=== PATIENT | male | born 1965 | race Caucasian/White ===

== ENCOUNTER 2020-12-15 15:09 | Emergency (ER) | payer MEDICARE, OTHER ==
[~2020-12-15 15:09] MED LIST: AMLODIPINE-BEN1 EAC4 PO; ASPIRIN CHEWABL81 MG PO; CLONAZEPAM0.5 MG PO; OMEPRAZOLE40 MG PO; QUETIAPINE FUM200 MG PO; SERTRALINE HCL100 MG PO; TRAZODONE HCL150 MG PO; VOLTAREN **OUT75 MG PO
[2020-12-15 16:33] LABS: BASOPHIL 0.9 % (0-2); EOSINOPHIL 3.2 % (0-5); HCT 39.1 % (42.0-52.0); LYMPHOCYTE 24.1 % (15-48); MCH 33.3 pg (25.0-31.0); MCHC 33.2 g/dL (32.0-36.0); MCV 100.3 fL (78.0-100.0); MONOCYTE 13.9 % (0-12); MPV 9.2 fL (6.0-9.5); NEUTROPHIL 57.5 % (41-80); NRBC 0; PLT 138 K/uL (150-400); RDW 14.2 % (11.5-14.0); WBC 8.2 K/uL (4.0-10.5)
[2020-12-15 16:53] LABS: BUN/CREAT RATIO (CALC) 18.6 RATIO; CREATININE 2.21 mg/dL (0.67-1.17); POTASSIUM 4.2 mmol/L (3.5-5.1)
[2020-12-15] MEDS ORDERED: CYCLOBENZAPRINE10 MG PO (18:44)
[2020-12-15] MEDS ORDERED: PREDNISONE 20MG20 MG PO (18:44)
[2020-12-15] MEDS ORDERED: NORCO 5-325 TA1 EACH PO (18:46)
[2021-01-05] MEDS ORDERED: KEPPRA250 MG PO (14:07)
[2021-01-05] MEDS ORDERED: TOPROL XL 25MG25 MG PO (14:09)
[2021-01-05] MEDS ORDERED: CYMBALTA 30MG C30 MG PO (14:10)
[2021-01-05] MEDS ORDERED: ALLOPURINOL100 MG PO (14:10)
[2021-01-05] MEDS ORDERED: FOLIC ACID1 MG PO (14:11)
[2021-01-05] MEDS ORDERED: BENAZEPRIL HCL20 MG PO ×2 (14:11)
[2021-01-05] MEDS ORDERED: LASIX20 MG PO (14:13)
[2021-01-12] MEDS ORDERED: AUGMENTIN 875-1 EACH PO (08:37)
[2021-01-12] MEDS ORDERED: PROTONIX 40MG T40 MG PO (08:37)
[2021-01-12] MEDS ORDERED: CARAFATE1 GM PO (08:37)
[2021-01-16] MEDS ORDERED: PERCOCET 5-3251 EACH PO (11:52)
== END 2020-12-15 19:20 | disposition home or self-care (01) ==
LOC: FER 15:09
PROVIDERS: Nurse Practitioner Family
DX: S39.012A Strain of muscle, fascia and tendon of lower back, initial encounter (principal); R51.9 Headache, unspecified; I12.9 Hypertensive chronic kidney disease with stage 1 through stage 4 chronic kidney disease, or unspecified chronic kidney disease; N18.9 Chronic kidney disease, unspecified; Z91.013 Allergy to seafood; W19.XXXA Unspecified fall, initial encounter
CPT/HCPCS: 36415; 70450; 72100; 73560; 73564; 80048; 85025; 96372; J1100; J1885

== ENCOUNTER → 2021-01-12 | Day surgery (SDC) | payer MEDICARE, OTHER ==
[~2021-01-12] VITALS: Ht 198.1 cm; Wt 150.6 kg
[~2021-01-12] MED LIST changes: +ALLOPURINOL100 MG PO; +AMLODIPINE BESY10 MG PO; +ASPIRIN81 MG PO; +AUGMENTIN 875-1 EACH PO; +BENAZEPRIL HCL20 MG PO; +CARAFATE1 GM PO; +COLACE100 MG PO; +CYCLOBENZAPRINE10 MG PO; +CYMBALTA 30MG C30 MG PO; +EMBREL IJ; +FOLIC ACID1 MG PO; +KEPPRA250 MG PO; +LASIX20 MG PO; +MIRALAX17 GM PO; +NITROQUIK SL0.4 MG SL; +NORCO 5-325 TA1 EACH PO; +ONDANSETRON HCL4 MG PO; +PERCOCET 5-3251 EACH PO; +PREDNISONE 20MG20 MG PO; +PROTONIX 40MG T40 MG PO; +TOPROL XL 25MG25 MG PO
== END | disposition home or self-care (01) ==
LOC: FAS 06:38
DX: K29.50 Unspecified chronic gastritis without bleeding (principal); K20.90 Esophagitis, unspecified without bleeding; K74.60 Unspecified cirrhosis of liver; K76.0 Fatty (change of) liver, not elsewhere classified; K31.7 Polyp of stomach and duodenum; K57.30 Diverticulosis of large intestine without perforation or abscess without bleeding; K57.32 Diverticulitis of large intestine without perforation or abscess without bleeding; I12.9 Hypertensive chronic kidney disease with stage 1 through stage 4 chronic kidney disease, or unspecified chronic kidney disease; D64.9 Anemia, unspecified; N18.9 Chronic kidney disease, unspecified; E78.5 Hyperlipidemia, unspecified; G47.33 Obstructive sleep apnea (adult) (pediatric); R73.03 Prediabetes; I83.93 Asymptomatic varicose veins of bilateral lower extremities; Z87.19 Personal history of other diseases of the digestive system; Z90.3 Acquired absence of stomach [part of]; Z98.84 Bariatric surgery status; Z91.013 Allergy to seafood; Z90.49 Acquired absence of other specified parts of digestive tract; Z98.890 Other specified postprocedural states; Z80.9 Family history of malignant neoplasm, unspecified; Z20.822 Contact with and (suspected) exposure to COVID-19; Z93.1 Gastrostomy status
CPT/HCPCS: J2250; J2704; J7120

== ENCOUNTER 2021-01-14 03:15 | Emergency (ER) | payer MEDICARE, OTHER ==
[~2021-01-14 03:15] MED LIST changes: -AMLODIPINE BESY10 MG PO; -ASPIRIN81 MG PO; -COLACE100 MG PO; -EMBREL IJ; -MIRALAX17 GM PO; -NITROQUIK SL0.4 MG SL; -ONDANSETRON HCL4 MG PO; -PERCOCET 5-3251 EACH PO
[2021-01-14] MEDS ORDERED: PERCOCET 5-3251 EACH PO (05:17)
[2021-01-16] MEDS ORDERED: PERCOCET 5-3251 EACH PO (11:52)
== END 2021-01-14 06:20 | disposition home or self-care (01) ==
LOC: FER 03:15
DX: S82.61XA Displaced fracture of lateral malleolus of right fibula, initial encounter for closed fracture (principal); I12.9 Hypertensive chronic kidney disease with stage 1 through stage 4 chronic kidney disease, or unspecified chronic kidney disease; E11.22 Type 2 diabetes mellitus with diabetic chronic kidney disease; N18.30 Chronic kidney disease, stage 3 unspecified; E11.40 Type 2 diabetes mellitus with diabetic neuropathy, unspecified; Z91.013 Allergy to seafood; Z88.8 Allergy status to other drugs, medicaments and biological substances; W19.XXXA Unspecified fall, initial encounter; Y92.009 Unspecified place in unspecified non-institutional (private) residence as the place of occurrence of the external cause; Z20.822 Contact with and (suspected) exposure to COVID-19
CPT/HCPCS: 73590; 73600; 73610; 73630; 96374; 96375; J1170; J2270; J2405; J7120; U0002

== ENCOUNTER 2021-01-18 06:00 | Day surgery (SDCO) | payer MEDICARE, OTHER ==
--- NOTE | 2021-01-16 12:16 | NUR ---
1212 PATIENT WAS BEING ADMITTED HE INFORMED RN THAT HE HAD HAM AT 6 AM THIS MORNING. ANESTHESIA WAS NOTIFIED. DR. OROPEZA WAS ALSO NOTIFIED. CASE TO BE RESHEDULED TO FRIDAY. BROTHER WAS NOTIFIED TO COME GET PATIENT.
[~2021-01-18] VITALS: Ht 198.1 cm; Wt 150.6 kg
[~2021-01-18 06:00] MED LIST changes: +PERCOCET 5-3251 EACH PO
[2021-01-18] MEDS ORDERED: EMBREL IJ (06:53)
[2021-01-18] MEDS ORDERED: AMLODIPINE BESY10 MG PO (13:24)
[2021-01-18] MEDS ORDERED: NITROQUIK SL0.4 MG SL (13:25)
[2021-01-18] MEDS ORDERED: ONDANSETRON HCL4 MG PO (13:27)
--- NOTE | 2021-01-19 09:53 | NUR ---
PT LIVES WITH 15 YEAR OLD SON; PT/OT DID SEE PT AND RECCOMMEND INPT SKILLED PT IS AN OBSERVATION [employer]MARK OF [facility] IS LOOKING INTO PT AND IS PENDING AN AUTH FOR HIM.
--- NOTE | 2021-01-19 11:41 | NUR ---
MR. CAMPBELL CHOSE [facility] FIRST AND THEN [facility]. SENT REFERRAL TO [facility] THEY HAVE SUBMITTED TO [facility] FOR AUTH.
--- NOTE | 2021-01-19 14:53 | NUR ---
SPOKE WITH PATIENTS BROTHER, [facility] CAMPBELL, PLEASE CALL [facility] FOR TRANSPORTATION TO THE [facility] ONCE PT. IS APPROVED BY INSURANCE. [facility] WILL NEED AT LEAST A 1 1/2 HOUR NOTICE TO TRANSPORT. [facility]S NUMBER IS [phone].
[2021-01-21 06:13] LABS: BASOPHIL 0.9 % (0-2); EOSINOPHIL 2.6 % (0-5); HCT 33.5 % (42.0-52.0); HGB 10.5 g/dl (13.2-18.0); LYMPHOCYTE 36.8 % (15-48); MCH 32.8 pg (25.0-31.0); MCHC 31.3 g/dL (32.0-36.0); MCV 104.7 fL (78.0-100.0); MONOCYTE 17.3 % (0-12); MPV 9.2 fL (6.0-9.5); NEUTROPHIL 42.2 % (41-80); NRBC 0; PLT 156 K/uL (150-400); RDW 14.1 % (11.5-14.0); WBC 4.3 K/uL (4.0-10.5)
[2021-01-21 06:37] LABS: ALBUMIN 2.8 g/dL (3.4-5.0); BILIRUBIN - TOTAL 0.5 mg/dL (0.2-1.0); BUN/CREAT RATIO (CALC) 19.6 RATIO; CREATININE 1.38 mg/dL (0.67-1.17); GLOBULIN (CALCULATION) 3.9 g/dL; PHOSPHORUS 3.9 mg/dL (2.6-4.7); POTASSIUM 4.5 mmol/L (3.5-5.1); TOTAL PROTEIN 6.7 g/dL (6.4-8.2)
--- NOTE | 2021-01-21 11:11 | NUR ---
01/21/21 Destiny Keyes reports that [facility] will accept patient today. Mr. Jeong will be required to relinguish his SS check minus $40.00. Mr. Jeong discussed his options of home w HH vs. SNF and decided to go to [facility]. He voiced understanding re: financials. Report given to MS SHRUTI Anne.
[2021-01-21] MEDS ORDERED: COLACE100 MG PO (14:45)
[2021-01-21] MEDS ORDERED: MIRALAX17 GM PO (14:45)
[2021-01-21] MEDS ORDERED: ASPIRIN81 MG PO (14:45)
[2021-01-21] MEDS ORDERED: CLONAZEPAM0.5 MG PO (14:45)
[2021-01-21] MEDS ORDERED: PERCOCET 5-3251 EACH PO (14:45)
== END 2021-01-21 16:54 ==
LOC: FAS 06:00 → FMS 15:28
PROVIDERS: Internal Medicine; ADMIT Hospitalist
DX: S82.841A Displaced bimalleolar fracture of right lower leg, initial encounter for closed fracture (principal); I12.9 Hypertensive chronic kidney disease with stage 1 through stage 4 chronic kidney disease, or unspecified chronic kidney disease; N18.30 Chronic kidney disease, stage 3 unspecified; E11.9 Type 2 diabetes mellitus without complications; M10.9 Gout, unspecified; G47.30 Sleep apnea, unspecified; F32.9 Major depressive disorder, single episode, unspecified; Z98.84 Bariatric surgery status; Z98.890 Other specified postprocedural states; Z90.49 Acquired absence of other specified parts of digestive tract; Z91.013 Allergy to seafood; Z20.822 Contact with and (suspected) exposure to COVID-19; Z87.19 Personal history of other diseases of the digestive system; W18.2XXA Fall in (into) shower or empty bathtub, initial encounter; Z86.2 Personal history of diseases of the blood and blood-forming organs and certain disorders involving the immune mechanism; Z79.899 Other long term (current) drug therapy; Z80.0 Family history of malignant neoplasm of digestive organs; Z82.49 Family history of ischemic heart disease and other diseases of the circulatory system; Z86.69 Personal history of other diseases of the nervous system and sense organs; M19.90 Unspecified osteoarthritis, unspecified site; Z99.81 Dependence on supplemental oxygen
CPT/HCPCS: 36415; 71045; 73600; 76000; 80053; 83605; 83735; 84100; 85025; 93005; 97116; 97162; 97530-GP; C1713; G0378; J0690; J0735; J1100; J1644; J1885; J2250; J2370; J2405; J2704; J2795; J3010; J7120

== ENCOUNTER 2021-09-02 23:10 | Inpatient (IN) | payer MEDICARE, OTHER ==
[~2021-09-02] VITALS: Ht 195.6 cm; Wt 132.9 kg
[~2021-09-02 23:10] MED LIST changes: +AMLODIPINE BESY10 MG PO; +ASPIRIN81 MG PO; +COLACE100 MG PO; +EMBREL IJ; +MIRALAX17 GM PO; +NITROQUIK SL0.4 MG SL; +ONDANSETRON HCL4 MG PO
[2021-09-02 23:59] LABS: BASOPHIL 0.1 % (0-2); EOSINOPHIL 0.5 % (0-5); HCT 43.3 % (42.0-52.0); HGB 13.6 g/dl (13.2-18.0); LYMPHOCYTE 12.2 % (15-48); MCHC 31.4 g/dL (32.0-36.0); MCV 95.6 fL (78.0-100.0); MONOCYTE 4.7 % (0-12); MPV 9.7 fL (6.0-9.5); NEUTROPHIL 82.3 % (41-80); NRBC 0; PLT 274 K/uL (150-400); RBC 4.53 M/uL (4.70-6.00); RDW 13.1 % (11.5-14.0); WBC 16.1 K/uL (4.0-10.5)
[2021-09-03 00:26] LABS: INR 1.21 (0.9-1.2); PROTHROMBIN TIME 14.7 SECONDS (11.8-13.4); PTT 27.9 SECONDS (24.4-34.7)
[2021-09-03 00:32] LABS: LACTIC ACID 1.9 mmol/L (0.4-1.9)
[2021-09-03 00:34] LABS: PRO-BNP 287 pg/mL (<125)
[2021-09-03 00:35] LABS: ALBUMIN 3.3 g/dL (3.4-5.0); BILIRUBIN - TOTAL 0.5 mg/dL (0.2-1.0); C-REACTIVE PROTEIN 0.7 mg/dL (<=0.90); CREATININE 1.67 mg/dL (0.67-1.17); GLOBULIN (CALCULATION) 4.2 g/dL; POTASSIUM 4.2 mmol/L (3.5-5.1); TOTAL PROTEIN 7.5 g/dL (6.4-8.2)
[2021-09-03 05:04] LABS: AMPHETAMINES NEGATIVE (NEGATIVE); BARBITURATES NEGATIVE (NEGATIVE); BILIRUBIN NEGATIVE (NEGATIVE); BLOOD 2+ Ery/uL (NEGATIVE); CLARITY CLEAR (CLEAR); COLOR YELLOW (YELLOW); ECSTASY (MDMA) NEGATIVE (NEGATIVE); GLUCOSE (U) NORMAL (NORMAL); LEUKOCYTES NEGATIVE Leu/uL (NEGATIVE); MARIJUANA (THC) NEGATIVE (NEGATIVE); METHADONE NEGATIVE (NEGATIVE); NITRITE NEGATIVE (NEGATIVE); OPIATES NEGATIVE (NEGATIVE); OXYCODONE NEGATIVE (NEGATIVE); PROTEIN TRACE (LOW) mg/dL (NEGATIVE); SPECIFIC GRAVITY 1.025 (1.001-1.030); UROBILINOGEN 0.2 mg/dL (0.2-1.0); pH 5.5 (5.0-9.0)
[2021-09-03 05:11] LABS: BACTERIA 3+; MUCOUS MODERATE
[2021-09-03 05:12] LABS: AMORPHOUS URATES CRYSTALS TRACE; GRANULAR CASTS TRACE
[2021-09-03 07:29] LABS: BASOPHIL 0.2 % (0-2); EOSINOPHIL 0 % (0-5); HCT 36.9 % (42.0-52.0); HGB 11.6 g/dl (13.2-18.0); LYMPHOCYTE 4.9 % (15-48); MCH 30.5 pg (25.0-31.0); MCHC 31.4 g/dL (32.0-36.0); MCV 97.1 fL (78.0-100.0); MONOCYTE 0.8 % (0-12); MPV 9.3 fL (6.0-9.5); NRBC 0; PLT 183 K/uL (150-400); RDW 13.2 % (11.5-14.0); WBC 8.6 K/uL (4.0-10.5)
[2021-09-03 07:30] LABS: NEUTROPHIL 93.6 % (41-80)
[2021-09-03 07:39] LABS: BUN/CREAT RATIO (CALC) 10.6 RATIO; CREATININE 1.79 mg/dL (0.67-1.17); POTASSIUM 4.1 mmol/L (3.5-5.1)
[2021-09-03] MEDS ORDERED: ASPIRIN EC81 MG PO (09:49)
[2021-09-03] MEDS ORDERED: NEURONTIN100 MG PO (10:00)
[2021-09-03] MEDS ORDERED: LACTULOSE10 G/15 ML PO (10:02)
[2021-09-03] MEDS ORDERED: Vitamin B-1 PO (10:05)
--- NOTE | 2021-09-03 13:14 | NUR ---
09/03/21 Mr. Jeong and his 16 y/o son share a home together. He has a rw, wc, and 3in1. A is current and patient wishes to continue services. [facility] was notified of admission via [employer].
--- NOTE | 2021-09-03 19:22 | NUR ---
LEVO WAS TURNED OFF AT 1515 [place] BLOOD PRESSURE 138/87 WILL CONTINUE TO MONITOR
[2021-09-04 07:22] LABS: BASOPHIL 0.1 % (0-2); EOSINOPHIL 0.1 % (0-5); HGB 9.6 g/dl (13.2-18.0); MCH 30.4 pg (25.0-31.0); MCV 98.1 fL (78.0-100.0); MONOCYTE 8.1 % (0-12); MPV 9.4 fL (6.0-9.5); NEUTROPHIL 73.2 % (41-80); NRBC 0; PLT 142 K/uL (150-400); RBC 3.16 M/uL (4.70-6.00); RDW 13.2 % (11.5-14.0); WBC 9.8 K/uL (4.0-10.5)
[2021-09-04 07:58] LABS: BUN/CREAT RATIO (CALC) 14.8 RATIO; CREATININE 1.76 mg/dL (0.67-1.17); POTASSIUM 4.8 mmol/L (3.5-5.1)
[2021-09-04] MEDS ORDERED: DULCOLAX5 MG PO (09:24)
[2021-09-04] MEDS ORDERED: EPIPEN 2-P0.3 MG/0.3 IM (09:24)
[2021-09-04] MEDS ORDERED: NORCO 5-325 TA1 EACH PO (09:24)
--- NOTE | 2021-09-04 10:11 | NUR ---
09/04/[address] [facility] was informed of discharge. Report given to E[place], ICU, RN.
== END 2021-09-04 14:10 | disposition home health service (06) | DRG 916 ==
LOC: FER 23:10 → FICU 09-03 05:02
PROVIDERS: Emergency Medicine Emergency Medical Services; Internal Medicine; Nurse Practitioner; ADMIT Family Medicine
PROC: 3E033XZ Introduction of Vasopressor into Peripheral Vein, Percutaneous Approach (ICD-10-PCS; principal; 2021-09-03)
DX: T78.02XA Anaphylactic reaction due to shellfish (crustaceans), initial encounter (principal); S32.019A Unspecified fracture of first lumbar vertebra, initial encounter for closed fracture; I95.9 Hypotension, unspecified; G40.909 Epilepsy, unspecified, not intractable, without status epilepticus; Z20.822 Contact with and (suspected) exposure to COVID-19; F10.11 Alcohol abuse, in remission; K74.60 Unspecified cirrhosis of liver; I12.9 Hypertensive chronic kidney disease with stage 1 through stage 4 chronic kidney disease, or unspecified chronic kidney disease; N18.9 Chronic kidney disease, unspecified; E11.42 Type 2 diabetes mellitus with diabetic polyneuropathy; E11.22 Type 2 diabetes mellitus with diabetic chronic kidney disease; M10.9 Gout, unspecified; K70.10 Alcoholic hepatitis without ascites; Z90.89 Acquired absence of other organs; Z90.3 Acquired absence of stomach [part of]; W19.XXXA Unspecified fall, initial encounter; Y92.009 Unspecified place in unspecified non-institutional (private) residence as the place of occurrence of the external cause; Z91.013 Allergy to seafood
CPT/HCPCS: 36415; 36600; 70450; 71250; 72131; 80048; 80053; 80305; 81001; 82803; 83036; 83605; 83880; 84145; 84484; 85025; 85610; 85730; 86140; 86850; 86900; 86901; 87040; 93005; 97162; 97166; 97530-GP; 97535; G0480; J0171; J1200; J1650; J2543; J2930; J7030; J7060; U0002

== ENCOUNTER 2022-08-14 13:37 | Emergency (ER) | payer MEDICARE, OTHER ==
[~2022-08-14 13:37] MED LIST changes: +ASPIRIN EC81 MG PO; +DULCOLAX5 MG PO; +EPIPEN 2-P0.3 MG/0.3 IM; +LACTULOSE10 G/15 ML PO; +NEURONTIN100 MG PO; +Vitamin B-1 PO
[2022-08-14] MEDS ORDERED: PERCOCET 5-3251 EACH PO (16:22)
== END 2022-08-14 16:55 | disposition home or self-care (01) ==
LOC: FER 13:37
DX: M25.561 Pain in right knee (principal); M25.562 Pain in left knee; M25.571 Pain in right ankle and joints of right foot; M25.572 Pain in left ankle and joints of left foot; I12.9 Hypertensive chronic kidney disease with stage 1 through stage 4 chronic kidney disease, or unspecified chronic kidney disease; N18.30 Chronic kidney disease, stage 3 unspecified; G43.909 Migraine, unspecified, not intractable, without status migrainosus; Z79.899 Other long term (current) drug therapy; W19.XXXA Unspecified fall, initial encounter; Y92.009 Unspecified place in unspecified non-institutional (private) residence as the place of occurrence of the external cause
CPT/HCPCS: 73564; 73600